=== PATIENT | male | born 1980 | race Caucasian/White ===

== ENCOUNTER → 2020-05-02 08:38 | Outpatient (CLI) | payer BC, SELFPAY ==
[2020-05-04 06:41] LABS: FSH 3.4 mIU/mL (1.5-12.4)
[2020-05-04 10:11] LABS: Prolactin 10.9 ng/mL (4.0-15.2)
[2020-05-09 10:08] LABS: Testosterone, Total, LC/MS 262.5 ng/dL (264.0-916.0); Testosterone,Free 6.1 pg/mL (8.7-25.1)
== END ==
PROVIDERS: PCP Nurse Practitioner Family; Visit Provider Urology
DX: E29.1 Testicular hypofunction (principal)
CPT/HCPCS: 36415; 83001; 83002; 84146; 84402; 84403

== ENCOUNTER 2020-07-08 16:36 | Emergency (ER) | payer BC, SELFPAY ==
[2020-07-08 17:17] VITALS: BP 133/89; PULSE 89; RESP 20; TEMP 37; O2SAT 98; BMI 30.2
--- NOTE | 2020-07-08 17:38 | HMH.EDUTC ---
[facility] [place] Clinical Impression: Encounter for laboratory testing for COVID-19 virus Disposition: Home, Self-Care Condition on Discharge: Good Instructions: Preventing the Spread of Coronavirus Discharge Instructions Additional Instructions: *Monitor Temp, Over the counter Motrin or Tylenol as directed/as needed Tylenol every 4 hours and Motrin every 6 hours (as long as your family doctor has told you that you can take it) for fever or pain. and straight to ER if unable to lower temp less than 101.0 after medication given *Warm salt water gargles may help to soothe the throat *Throat Lozenges *Warm fluids like tea with honey may help to soothe the throat *Sleep elevated *Humidifier/Vaporizer Follow up IMMEDIATELY for new or worsening symptoms or no Noticeable improvement over the next 48-72 hours. 911 for difficulty breathing or swallowing You was tested for today for COVID19 your test result should be back in the next 24-48 hours, you may call to the [facility] tomorrow to see if your test results are back and the result [phone] You was given a handout with instructions for Self Quarantine and Self isolation for while you wait on test results and what to do if they are positive If you are positive the Health Dept will be contacting you also Referrals: Bessy Cyr APRN [Primary Care Provider] - As needed Forms: Work/School Release Time of Disposition: 17:44 Medical Decision Making - Benny Inquiry Pt receiving controlled substance: No Benny was queried for this patient: No Vital Signs: 07/08/20 17:17 Temperature 98.6 F Temperature Source Oral Pulse Rate [Left] 89 Respiratory Rate 20 Blood Pressure [Right Arm] 133/89 Blood Pressure Mean [Right Arm] 103 Blood Pressure Source [Right Arm] Automatic Cuff Blood Pressure Position [Right Arm] Sitting 02 Sat by Pulse Oximetry 98 Orders (Tests/Meds): ORDERS Category Date Time Status Covid-19 Nasal PCR Sendout [facility] 07/08/20 17:04 Ordered [facility] [place] - General Stated complaint: covid test Time Seen by Provider: 07/08/20 17:38 Mode of Arrival: Ambulatory Source of Information: Patient Limitations: No Limitations Description of Symptoms (Recalled from Triage Doc. by RN): Covid testing no exposure no symptoms HEENT Symptoms (Recalled from RN notes): No Resp Symptoms (Recalled from RN notes): No Skin Symptoms (Recalled from RN notes): No MS Symptoms (Recalled from RN notes): No Functional Status (Recalled from RN notes): stable - History of Present Illness Provider Complaint: Patient state that he wanted to get tested for COVID to make sure that he doesnt have it States that he isnt having any symptoms and not been directly exposed that he is aware of. - Worker's Comp Is this a Worker's Comp case?: No Is this an [facility] Worker's Comp?: No Is this a [place] Worker's Comp?: No [facility] History - Hepatitis A Screen Drug use history?: No High risk sexual behaviors?: No History of sexually transmitted infection?: No Currently employed?: No Childcare worker?: No Do you have indoor plumbing?: Yes Do you have electricity?: Yes Attestation statement:: This patient has been screened for Hepatitis A risk factors. I have reviewed the patient's past medical history: Yes ROS Obtained: Yes All systems reviewed & no additional complaints, Yes Systems reviewed as appropriate & no additional complaints - Constitutional Constitutional: Reports system reviewed and no additional complaints, except as docu, Denies body ache, Denies chills, Denies fever(s), Denies headache(s) - ENT Ears, Nose, Mouth, and Throat: Reports system reviewed and no additional complaints, except as docu - Cardiovascular Cardiovascular: Reports system reviewed and no additional complaints, except as docu - Respiratory Respiratory: Yes system reviewed and no additional complaints, except as docu - Gastrointestinal Gastrointestingal: Reports: system reviewed and no additional c
[2020-07-08 17:49] VITALS: BP 133/89; PULSE 89; RESP 20; TEMP 37; O2SAT 98
[2020-07-10 17:31] LABS: Covid-19 Nasal PCR Sendout Lex Not Detected
== END 2020-07-08 17:49 | disposition home or self-care (01) ==
PROVIDERS: Emergency Provider Nurse Practitioner; PCP Nurse Practitioner Family
DX: Z20.828 Contact with and (suspected) exposure to other viral communicable diseases (principal)
CPT/HCPCS: 99201; U0004

== ENCOUNTER 2020-08-17 23:01 | Emergency (ER) | payer BC, SELFPAY ==
[2020-08-17 23:03] VITALS: BP 157/88; PULSE 81; RESP 16; TEMP 37; O2SAT 97; BMI 30.4
--- NOTE | 2020-08-17 23:19 | CT_ITS ---
PROCEDURE: CT THORACIC SPINE WO CON CLINICAL HISTORY: back pain Left-sided back pain COMPARISON: No exams were available for comparison TECHNIQUE: Axial images obtained with sagittal and coronal reformats. All CT scans at the facility use one or more dose reduction, viz: automated exposure control, ma/kV adjustment per patient size (including targeted exams where dose is matched to indication, i.e. head), or iterative reconstruction technique. FINDINGS: Normal alignment. No fracture or dislocation. There is minimal spurring anteriorly at the T5-T6 level. There is slight decrease in the disc spaces in the midthoracic spine consistent with mild degenerative changes. No lytic or blastic change. A small subcutaneous skin lesion is present at the T7 area posteriorly and on the left and may be due to small sebaceous cyst. IMPRESSION: Mild degenerative change, no acute finding Dictated by: Josue Abdul MD 08/18/2020 08:02 Josue Abdul MD in [place] 08/18/2020 08:02
--- NOTE | 2020-08-17 23:19 | CT_ITS ---
PROCEDURE: CT LUMBAR SPINE WO CON CLINICAL HISTORY: back pain Left paraspinal back pain COMPARISON: No exams were available for comparison TECHNIQUE: Axial images obtained with sagittal and coronal reformats. All CT scans at the facility use one or more dose reduction, viz: automated exposure control, ma/kV adjustment per patient size (including targeted exams where dose is matched to indication, i.e. head), or iterative reconstruction technique. FINDINGS: There is normal alignment. No fracture or dislocation. No lytic or blastic change. At L5-S1 there is slight decrease in the disc space with bulging disc and small central disc protrusion. This may be better evaluated with MRI if clinically warranted. IMPRESSION: 1. No acute fracture. 2. Mild degenerative disc disease with bulging disc and small central disc protrusion at L5-S1. MRI may provide more thorough evaluation to determine if there is any impingement if clinically desired. Dictated by: Josue Abdul MD 08/18/2020 08:05 Josue Abdul MD in [facility] 08/18/2020 08:05
--- NOTE | 2020-08-17 23:50 | PC.NURSE ---
pt back from RAD
--- NOTE | 2020-08-18 00:03 | HMH.EDBACK ---
ED Disposition Clinical Impression: Lumbar back pain Disposition: Home, Self-Care Condition on Discharge: Good Instructions: DI for Low Back Pain Additional Instructions: heat and use meds and see pcp for follow up Prescriptions: predniSONE [Prednisone 20mg Tab] 20 mg PO BID #10 tab Transmission Status: Pending to [facility] Tizanidine HCl [Zanaflex 4mg tab] 4 mg PO TID PRN #21 tab PRN Reason: Muscle Spasm Transmission Status: Pending to [facility] Referrals: Bessy Cyr APRN [Primary Care Provider] - - Critical Care Critical Care Time: No Attestation: On 08/17/20, the high probability of a clinically significant, sudden or life threatening deterioration of the following system(s) required my full and direct attention, intervention and personal management. The time I documented below is in addition to time spent performing reported procedures but includes the following listed in this critical care notation. Medical Decision Making - Medical Records Medical records reviewed: Yes: I reviewed the patient's medical records. - Benny Inquiry Pt receiving controlled substance: No Vital Signs: 08/17/20 23:03 Temperature 98.6 F Temperature Source Oral Pulse Rate [Left Radial] 81 Respiratory Rate 16 Blood Pressure [Right Arm] 157/88 H Blood Pressure Mean [Right Arm] 111 Blood Pressure Source [Right Arm] Automatic Cuff Blood Pressure Position [Right Arm] Sitting 02 Sat by Pulse Oximetry 97 Oxygen Delivery Method Room Air - Lab Data Lab results reviewed: Yes: I reviewed the patient's lab results. Orders (Tests/Meds): ED MEDICATIONS Discontinued Medications Generic Name Dose Route Start Last Admin Trade Name Freq PRN Reason Stop Dose Admin Dexamethasone Sodium Phosphate 8 mg 08/17/20 23:52 08/17/20 23:55 Dexamethasone 4mg/Ml 1ml Vial IM 08/17/20 23:53 8 mg ONCE ONE Administration Ketorolac Tromethamine 60 mg 08/17/20 23:52 08/17/20 23:56 Ketorolac 60mg/2ml Vial IM 08/17/20 23:53 60 mg ONCE ONE Administration ORDERS Category Date Time Status CT lumbar spine wo con Stat Cat Scan 08/17/20 23:[address] thoracic spine wo con Stat Cat Scan 08/17/20 23:19 Taken - CT Data CT Scan: T-Spine, L-Spine Time Received: 00:[address] Reviewed: Yes: I have viewed the radiologist's interpretation Preliminary Findings: No Fracture Seen Back Pain HPI - General Chief Complaint: Back Pain/Injury Stated Complaint: middle back pain Time Seen by Provider: 08/17/20 23:30 Mode of Arrival: Ambulatory Source of Information: Patient, Medical Record Limitations: No Limitations Description of Symptoms (Recalled from ER Triage Doc. by RN): pt complains of middle back pain for the last couple of hours. pt denies a specific injury but stated he has been lifting heavy weights. pt describes the pain as a sharp stabbing or a spasm rating it a 7. pt denies chest pain, abd/ pain or SOB. - History of Present Illness HPI Narrative: acute excerbation of back pain - no cauda equina sx - no fever/rash Complaint: back pain Onset (ago): hour(s) Duration: constant Similar Symptoms Previously: No Location: lumbar spine, thoracic spine Severity: moderate Radiation: none Associated symptoms: denies other symptoms - Related Data Home Medications Medication Instructions Recorded Confirmed lisinopriL [Lisinopril 10mg Tab] 10 mg PO DAILY 07/08/20 07/08/20 Previous Rx's Medication Instructions Recorded Tizanidine HCl [Zanaflex 4mg 4 mg PO TID PRN #21 tab 08/18/20 tab] predniSONE [Prednisone 20mg 20 mg PO BID #10 tab 08/18/20 Tab] Allergies Allergy/AdvReac Type Severity Reaction Status Date / Time No Known Allergies Allergy Verified 07/08/20 20:42 [facility] History - Hepatitis A Screen Drug use history?: No High risk sexual behaviors?: No History of sexually transmitted infection?: No Currently employed?: No Childcare wo
[2020-08-18 00:15] VITALS: BP 168/98; PULSE 85; RESP 16; TEMP 36.8; O2SAT 97
== END 2020-08-18 00:19 | disposition home or self-care (01) ==
PROVIDERS: Emergency Provider Emergency Medicine; PCP Nurse Practitioner Family
DX: M54.5 Low back pain (principal); I10 Essential (primary) hypertension
CPT/HCPCS: 72128; 72131; 96372; 99282

== ENCOUNTER → 2020-08-20 10:27 | Outpatient (CLI) | payer BC, SELFPAY ==
[2020-08-20 13:08] LABS: Coronavirus 19 IgG Antibody Negative (Negative); Coronavirus 19 IgM Antibody Negative (Negative)
[2020-08-21 14:16] LABS: Covid-19 Nasal PCR Sendout P&C POSITIVE
--- NOTE | 2020-08-21 20:45 | PC.NURSE ---
DR. REESE NOTIFIED OF POSITIVE COVID RESULTS.
== END ==
PROVIDERS: PCP Nurse Practitioner Family; Visit Provider Nurse Practitioner Family
DX: Z20.828 Contact with and (suspected) exposure to other viral communicable diseases (principal); U07.1 COVID-19; J02.9 Acute pharyngitis, unspecified
CPT/HCPCS: 36415; 86328; U0004

== ENCOUNTER → 2022-04-01 07:00 | Outpatient (CLI) | payer BC, SELFPAY ==
[2022-04-01 18:01] LABS: Anion Gap 10.6 mEq/L (5-15); Blood Urea Nitrogen 17 mg/dl (9-20); Calcium 9.2 mg/dl (8.4-10.2); Carbon Dioxide 27 mmol/L (22.0-30.0); Chloride 105 mmol/L (98-107); Estimated Glomerular Filt Rate 83 ml/min (>60); GFR (African American) 100 ML/MIN (>60); Glucose 101 mg/dl (74-100); Potassium 4.6 mmoL/L (3.5-5.1); Sodium 138 mmol/L (136-145)
== END ==
PROVIDERS: PCP Internal Medicine Adolescent Medicine; Visit Provider Internal Medicine Adolescent Medicine
DX: M10.9 Gout, unspecified (principal)
CPT/HCPCS: 80048

== ENCOUNTER → 2022-10-07 23:45 | Outpatient (CLI) | payer BC, SELFPAY ==
[2022-10-08 17:14] LABS: Basophils % 0.5 % (0.1-2.0); Eosinophils # 0.3 K/mm3 (0.0-0.4); Hematocrit 43.7 % (42.0-52.0); Hemoglobin 14.1 g/dL (14.1-18.0); Lymphocytes % 35.7 % (10-50); Mean Corpuscular HGB Conc 32.1 g/dL (31.8-35.4); Mean Corpuscular Hemoglobin 29.8 pg (27.0-31.2); Mean Corpuscular Volume 92.6 fl (80-94); Mean Platelet Volume 9.6 fl (7.4-10.4); Monocytes # 0.3 K/mm3 (0.1-1.0); Monocytes % 4.5 % (1.7-9.3); Neutrophils # 3.1 K/mm3 (1.8-7.8); Neutrophils % 54.2 % (37.0-80.0); Platelet Count 239 K/mm3 (142-424); Red Blood Count 4.72 M/mm3 (4.60-6.20); Red Cell Distribution Width 12.9 % (11.5-17.5); White Blood Count 5.7 K/mm3 (4.8-10.8)
[2022-10-08 17:18] LABS: Alanine Aminotransferase 30 U/L (12-78); Albumin Level 4.1 g/dl (3.5-5.0); Albumin/Globulin Ratio 1.6 (1.1-1.8); Alkaline Phosphatase 52 U/L (38-126); Anion Gap 9.9 mEq/L (5-15); Aspartate Amino Transferase 37 U/L (17-59); Bilirubin,Total 0.2 mg/dl (0.2-1.3); Blood Urea Nitrogen 26 mg/dl (9-20); Calcium 8.6 mg/dl (8.4-10.2); Carbon Dioxide 30 mmol/L (22.0-30.0); Chloride 108 mmol/L (98-107); Chol/HDL Ratio 4.2 (1-3.5); Cholesterol 125 mg/dl (140-200); Estimated Glomerular Filt Rate 67 ml/min (>60); GFR (African American) 81 ML/MIN (>60); Globulin 2.5 g/dL (1.3-3.2); Glucose 93 mg/dl (74-100); HDL Cholesterol 30 mg/dl (40-60); Potassium 4.9 mmoL/L (3.5-5.1); Sodium 143 mmol/L (136-145); Total Protein,Serum 6.6 g/dl (6.3-8.2); Triglycerides 100 mg/dl (30-150); VLDL Cholesterol 20 mg/dL (0-40)
[2022-10-08 17:29] LABS: Direct LDL Cholesterol 75.66 mg/dL (100-129)
[2022-10-08 17:36] LABS: Free Thyroxine Index 3.2 ug/dL (5.93-13.13); T4 (Thyroxine) 8.4 ug/dl (5.53-11.0); Triiodothryronine (T3) Uptake 38 % (23.5-40.5)
[2022-10-08 17:49] LABS: Thyroid Stimulating Hormone 0.69 uIU/mL (0.465-4.68)
[2022-10-16 06:03] LABS: Testosterone, Total, LC/MS 313.7 ng/dL (264.0-916.0); Testosterone,Free 6.5 pg/mL (6.8-21.5)
== END ==
PROVIDERS: PCP Nurse Practitioner Family; Visit Provider Nurse Practitioner Family
DX: R09.89 Other specified symptoms and signs involving the circulatory and respiratory systems (principal); R63.4 Abnormal weight loss; I10 Essential (primary) hypertension; E29.1 Testicular hypofunction
CPT/HCPCS: 80053; 80061; 84402; 84403; 84436; 84443; 84479; 85025; C9803; U0003; U0005

== ENCOUNTER → 2023-07-15 23:15 | Outpatient (CLI) | payer BC, SELFPAY ==
[2023-07-15 17:12] LABS: Basophils % 0.5 % (0.1-2.0); Eosinophils # 0.1 K/mm3 (0.0-0.4); Eosinophils % 1.6 % (0.1-12.0); Hematocrit 47.8 % (42.0-52.0); Hemoglobin 16.2 g/dL (14.1-18.0); Lymphocytes % 23.5 % (10-50); Mean Corpuscular HGB Conc 33.9 g/dL (31.8-35.4); Mean Corpuscular Hemoglobin 31.3 pg (27.0-31.2); Mean Corpuscular Volume 92.4 fl (80-94); Mean Platelet Volume 10.7 fl (7.4-10.4); Monocytes # 0.5 K/mm3 (0.1-1.0); Monocytes % 6.2 % (1.7-9.3); Neutrophils # 5.8 K/mm3 (1.8-7.8); Neutrophils % 68.1 % (37.0-80.0); Platelet Count 230 K/mm3 (142-424); Red Blood Count 5.18 M/mm3 (4.60-6.20); Red Cell Distribution Width 13.1 % (11.5-17.5); White Blood Count 8.5 K/mm3 (4.8-10.8)
[2023-07-15 17:29] LABS: Alanine Aminotransferase 30 U/L (12-78); Albumin Level 4.7 g/dl (3.5-5.0); Albumin/Globulin Ratio 1.5 (1.1-1.8); Alkaline Phosphatase 59 U/L (38-126); Anion Gap 16.9 mEq/L (5-15); Aspartate Amino Transferase 42 U/L (17-59); Bilirubin,Total 0.5 mg/dl (0.2-1.3); Blood Urea Nitrogen 18 mg/dl (9-20); Calcium 9.6 mg/dl (8.4-10.2); Carbon Dioxide 26 mmol/L (22.0-30.0); Chloride 101 mmol/L (98-107); Chol/HDL Ratio 3.7 (1-3.5); Cholesterol 212 mg/dl (140-200); Estimated Glomerular Filt Rate 61 ml/min (>60); GFR (African American) 73 ML/MIN (>60); Globulin 3.2 g/dL (1.3-3.2); Glucose 96 mg/dl (74-100); HDL Cholesterol 57 mg/dl (40-60); Potassium 4.9 mmoL/L (3.5-5.1); Sodium 139 mmol/L (136-145); Total Protein,Serum 7.9 g/dl (6.3-8.2); Triglycerides 84 mg/dl (30-150); VLDL Cholesterol 17 mg/dL (0-40)
[2023-07-15 17:59] LABS: Thyroid Stimulating Hormone 1.48 uIU/mL (0.465-4.68)
[2023-07-17 08:57] LABS: Testosterone,Total 192 ng/dL (264-916)
== END ==
PROVIDERS: PCP Family Medicine; Visit Provider Family Medicine
DX: Z00.00 Encounter for general adult medical examination without abnormal findings (principal); I10 Essential (primary) hypertension; R53.83 Other fatigue
CPT/HCPCS: 80053; 80061; 84403; 84443; 85025

== ENCOUNTER 2023-07-17 09:44 | Emergency (ER) | payer BC, SELFPAY ==
[2023-07-17 09:46] VITALS: BP 147/101; PULSE 84; RESP 16; TEMP 36.7; O2SAT 99; BMI 26.7
[2023-07-17 10:00] VITALS: BP 148/100; PULSE 88; RESP 18; O2SAT 97
--- NOTE | 2023-07-17 10:05 | HMH.EDGENADL ---
Discharge Plan Disposition Patient Disposition: Home, Self-Care Chief Complaint: Headache Prescriptions Prescriptions: No Action bupropion HCl [Wellbutrin XL] 300 mg tablet extended release 24 hr 300 mg PO DAILY Qty: 30 1RF Qelbree 200 mg capsule,extended release 24hr 200 mg PO .COMPLEX Qty: 60 1RF Rx Instructions: take 1 daily for 2 weeks; then increase to 2 capsules daily indomethacin 50 mg capsule 50 mg PO BID Qty: 60 0RF Rx Instructions: administer with food or milk, take 50mg BID for 7-14 days for gout flare allopurinol 100 mg tablet See Rx Instructions .ROUTE .COMPLEX Qty: 90 1RF Dose Instruction: TAKE 1 TABLET BY MOUTH ONCE DAILY Rx Instructions: TAKE 1 TABLET BY MOUTH ONCE DAILY lisinopril 10 mg tablet See Rx Instructions .ROUTE .COMPLEX Qty: 30 0RF Dose Instruction: TAKE 1 TABLET BY MOUTH ONCE DAILY Rx Instructions: TAKE 1 TABLET BY MOUTH ONCE DAILY Referrals Follow up/Referrals: Jn Garcia MD [Primary Care Provider] - See instructions Activity Restrictions/Add. Instructions Additional Instructions/Restrictions: Call your family doctor to establish care for this visit to the emergency department and schedule follow-up within 48 hours to ensure improvement. If you have any worsening of your condition or any other concerning signs or symptoms, return to the emergency department or your primary care doctor for further evaluation. Take Tylenol 1000 mg every 6 hours (4 times daily) and ibuprofen 400 mg every 6 hours (4 times daily) as needed with food and water to prevent GI upset and kidney damage. Clinical Impressions Clinical Impression: Migraine headache Qualifiers: Migraine type: unspecified Status migrainosus presence: without status migrainosus Intractability: not intractable Qualified Code(s): G43.909 - Migraine, unspecified, not intractable, without status migrainosus Discharge ED Provider: Ady Pillai General Adult HPI General Chief complaint: Headache Stated complaint: HEADACHE, THROWING UP Time Seen by Provider: 07/17/23 09:47 History of Present Illness HPI narrative: 43-year-old male history of hypertension on lisinopril, ADHD, illness anxiety disorder presenting with headache. Patient states that he has felt unwell for the past couple of weeks. Followed with his family doctor, had labs drawn a couple days prior to arrival. Those labs were personally reviewed and interpreted. Patient states that he started having a headache today, 07/17 after waking up. [place] in nature, but intermittently remits. Has not taken any medication for this headache. He is light sensitive, sound sensitive. Denies significant headache history other than minor headaches here and there in the past. Denies neurologic deficits, patient did have 1 episode of vomiting, but he is color blind and did not look at it. Still passing gas, having bowel movements. Denies abdominal pain, fevers or chills, or sick contacts. Related Data Previous Rx's Medication Instructions Recorded indomethacin 50 mg capsule 50 mg PO BID #60 caps 04/04/23 allopurinol 100 mg tablet See Rx Instructions .Route 05/16/23 .COMPLEX #90 tabs bupropion HCl 300 mg 24 hr tablet, 300 mg PO DAILY #30 tabs 07/06/23 extended release (Wellbutrin XL) lisinopril 10 mg tablet See Rx Instructions .Route 07/06/23 .COMPLEX #30 tabs viloxazine 200 mg capsule,extended 200 mg PO .COMPLEX #60 caps 07/06/23 release 24 hr (Qelbree) Allergies Allergy/AdvReac Type Severity Reaction Status Date / Time No Known Allergies Allergy Verified 07/15/23 09:28 [facility] Disclaimer: The information contained in this section may have been updated after the patient was seen, as this information can be updated by other users. Medical History ADHD Concentration deficit Gout Hypertension Surgical History (Reviewed 07/15/23 @ 10:36 b
[2023-07-17 10:19] LABS: Basophils % 0.3 % (0.1-2.0); Eosinophils # 0.2 K/mm3 (0.0-0.4); Eosinophils % 1.7 % (0.1-12.0); Hematocrit 46.6 % (42.0-52.0); Hemoglobin 15.7 g/dL (14.1-18.0); Lymphocytes # 1.6 K/mm3 (0.7-4.5); Lymphocytes % 16.9 % (10-50); Mean Corpuscular HGB Conc 33.6 g/dL (31.8-35.4); Mean Corpuscular Hemoglobin 31.1 pg (27.0-31.2); Mean Corpuscular Volume 92.6 fl (80-94); Mean Platelet Volume 8.8 fl (7.4-10.4); Monocytes # 0.3 K/mm3 (0.1-1.0); Neutrophils # 7.3 K/mm3 (1.8-7.8); Platelet Count 191 K/mm3 (142-424); Red Blood Count 5.04 M/mm3 (4.60-6.20); Red Cell Distribution Width 12.8 % (11.5-17.5); White Blood Count 9.4 K/mm3 (4.8-10.8)
[2023-07-17 10:26] LABS: Chloride 105 mmol/L (98-107); Potassium 4.6 mmoL/L (3.5-5.1); Sodium 139 mmol/L (136-145)
[2023-07-17 10:29] LABS: Anion Gap 10.6 mEq/L (5-15); Blood Urea Nitrogen 15 mg/dl (9-20); Carbon Dioxide 28 mmol/L (22.0-30.0); Creatinine Clearance Estimated 114 mL/min (50-200); Estimated Glomerular Filt Rate 73 ml/min (>60); GFR (African American) 89 ML/MIN (>60); Glucose 106 mg/dl (74-100)
[2023-07-17 10:30] VITALS: BP 152/100; PULSE 76; RESP 18; O2SAT 98
[2023-07-17 10:30] LABS: Calcium 8.9 mg/dl (8.4-10.2)
[2023-07-17 11:42] VITALS: BP 144/99; PULSE 72; RESP 15; TEMP 36.9; O2SAT 98
--- NOTE | 2023-07-17 11:54 | PC.NURSE ---
Dr. Pillai at to reevaluate pt
== END 2023-07-17 12:09 | disposition home or self-care (01) ==
PROVIDERS: Emergency Provider Emergency Medicine; PCP Family Medicine
DX: G43.909 Migraine, unspecified, not intractable, without status migrainosus (principal); R11.10 Vomiting, unspecified; I10 Essential (primary) hypertension; F90.9 Attention-deficit hyperactivity disorder, unspecified type; F41.1 Generalized anxiety disorder
CPT/HCPCS: 80048; 85025; 96361; 96374; 96375; 99284; J0131

== ENCOUNTER → 2023-08-05 10:36 | Outpatient (CLI) | payer BC, SELFPAY ==
--- NOTE | 2023-08-05 10:37 | CT_ITS ---
FINAL REPORT TECHNIQUE: Multiple axial CT sections were performed from the foramen magnum to the vertex. Coronal and sagittal reformatted images were also obtained. Precontrast and postcontrast injection images were obtained. This study was performed with technique to keep radiation doses as low as reasonably achievable, (ALARA). Individualized dose reduction techniques using automated exposure control or adjustment of mA and/or kV according to the patient size were employed. CLINICAL HISTORY: ongoing headache, blurry vision FINDINGS: The ventricles are normal in size. There is no evidence of hemorrhage. No masses are identified. No extra-axial fluid collection is seen. There is bilateral moderate maxillary soft tissue thickening. There is left parietal scalp soft tissue swelling present. No osseous abnormality is seen on the bone window images. Postcontrast images demonstrate no abnormal enhancement. IMPRESSION: Unremarkable CT of the head with and without contrast. Left parietal scalp soft tissue swelling. Moderate bilateral maxillary sinus soft tissue thickening. Reviewed, Interpreted and Dictated by Tim Khan III, MD Transcribed by Kajal Rojas Authenticated and [facility]
== END ==
LOC: RAD 10:37
PROVIDERS: PCP Family Medicine; Visit Provider Nurse Practitioner Family
DX: H53.8 Other visual disturbances (principal); R51.9 Headache, unspecified
CPT/HCPCS: 70470; Q9967

== ENCOUNTER 2023-11-02 16:46 | Outpatient (CLI) | payer BC, SELFPAY ==
[2023-11-02 16:36] LABS: Basophils # 0.1 K/mm3 (0-0.2); Basophils % 0.9 % (0.1-2.0); Eosinophils # 0.3 K/mm3 (0.0-0.4); Eosinophils % 4.4 % (0.1-12.0); Hematocrit 50.5 % (42.0-52.0); Hemoglobin 16.3 g/dL (14.1-18.0); Mean Corpuscular HGB Conc 32.2 g/dL (31.8-35.4); Mean Corpuscular Hemoglobin 31.8 pg (27.0-31.2); Mean Corpuscular Volume 98.8 fl (80-94); Mean Platelet Volume 9.9 fl (7.4-10.4); Monocytes # 0.5 K/mm3 (0.1-1.0); Monocytes % 7.7 % (1.7-9.3); Neutrophils # 3.9 K/mm3 (1.8-7.8); Neutrophils % 58.1 % (37.0-80.0); Platelet Count 257 K/mm3 (142-424); Red Blood Count 5.11 M/mm3 (4.60-6.20); Red Cell Distribution Width 13.7 % (11.5-17.5); White Blood Count 6.8 K/mm3 (4.8-10.8)
[2023-11-02 17:56] LABS: Alanine Aminotransferase 35 U/L (12-78); Albumin Level 4.6 g/dl (3.5-5.0); Albumin/Globulin Ratio 1.8 (1.1-1.8); Alkaline Phosphatase 58 U/L (38-126); Anion Gap 17.3 mEq/L (5-15); Aspartate Amino Transferase 43 U/L (17-59); Bilirubin,Total 0.7 mg/dl (0.2-1.3); Blood Urea Nitrogen 19 mg/dl (9-20); Calcium 9.3 mg/dl (8.4-10.2); Carbon Dioxide 26 mmol/L (22.0-30.0); Chloride 102 mmol/L (98-107); Chol/HDL Ratio 5.1 (1-3.5); Cholesterol 239 mg/dl (140-200); Estimated Glomerular Filt Rate 66 ml/min (>60); GFR (African American) 80 ML/MIN (>60); Globulin 2.6 g/dL (1.3-3.2); HDL Cholesterol 47 mg/dl (40-60); Potassium 4.3 mmoL/L (3.5-5.1); Sodium 141 mmol/L (136-145); Total Protein,Serum 7.2 g/dl (6.3-8.2); Triglycerides 131 mg/dl (30-150); VLDL Cholesterol 26 mg/dL (0-40)
[2023-11-02 18:07] LABS: Direct LDL Cholesterol 135.25 mg/dL (100-129)
[2023-11-02 18:48] LABS: Glucose 51 mg/dl (74-100)
[2023-11-07 08:05] LABS: Free Testosterone (Direct) 7.6 pg/mL (6.8-21.5); Testosterone, Total, LC/MS 244.2 ng/dL (264.0-916.0)
== END 2023-11-02 23:59 ==
LOC: LAB.DROPOF 16:47
PROVIDERS: PCP Family Medicine; Visit Provider Family Medicine
DX: I10 Essential (primary) hypertension (principal); R79.89 Other specified abnormal findings of blood chemistry; Z79.899 Other long term (current) drug therapy
CPT/HCPCS: 80053; 80061; 85025

== ENCOUNTER 2023-12-12 08:14 | Emergency (ER) | payer BC, SELFPAY ==
[2023-12-12 08:25] VITALS: BP 160/93; PULSE 83; RESP 18; TEMP 36.8; O2SAT 97; BMI 29.1
--- NOTE | 2023-12-12 08:39 | EXP.UTC ---
Discharge Plan Disposition Patient Disposition: Home, Self-Care Condition: Good Prescriptions Prescriptions: New cyclobenzaprine 10 mg Tablet 10 mg PO BID PRN (Reason: Muscle Spasm) Qty: 20 0RF methylprednisolone 4 mg Tablets,Dose Pack 4 mg PO DIRECTED 6 Days Qty: 21 0RF Rx Instructions: Take 1 pack as directed for 6 days No Action clonidine HCl 0.1 mg tablet 0.1 mg PO BID Qty: 60 2RF testosterone cypionate 200 mg/mL oil 200 mg IM Q2W Qty: 2 2RF indomethacin 50 mg capsule 50 mg PO BID Qty: 60 0RF Rx Instructions: administer with food or milk, take 50mg BID for 7-14 days for gout flare allopurinol 100 mg tablet See Rx Instructions .ROUTE .COMPLEX Qty: 90 1RF Dose Instruction: TAKE 1 TABLET BY MOUTH ONCE DAILY Rx Instructions: TAKE 1 TABLET BY MOUTH ONCE DAILY lisinopril 40 mg tablet 40 mg PO DAILY Qty: 90 2RF fluticasone propionate [Flonase Allergy Relief] 50 mcg/actuation spray,suspension 1 spray intranasal DAILY Qty: 16 2RF Rx Instructions: administer into each nostril bupropion HCl [Wellbutrin XL] 150 mg tablet extended release 24 hr 450 mg PO DAILY 90 Days Qty: 270 2RF Referrals Follow up/Referrals: Hever Veloz DO [Staff Physician] - See instructions Jn Garcia MD [Primary Care Provider] - See instructions Activity Restrictions/Add. Instructions Additional Instructions/Restrictions: Go home and rest. It would be best if you rested tomorrow too. No heavy lifting and no twisting for the next few days. Take the oral medications as directed. Apply heat to the affected area at least 3 or 4 times per day for around 10 minutes each time over the next 2 to 3 days. A heating pad or a warm towel would be best. Make sure you don't burn yourself when you are doing this. The muscle relaxer (cyclobenzaprine--Flexeril) will make you drowsy, so don't drive or operate heavy machinery after taking it. Don't start the oral steroids (medrol dose pack) until tomorrow, since you had the shots in here today. Follow up with your regular doctor. GO TO THE ER FOR ANY WORSENING SYMPTOMS OR CONCERN, ESPECIALLY BOWEL OR BLADDER ISSUES, SADDLE AREA NUMBNESS, FEVER, ETC Follow up with Dr. Veloz (orthopedics) if you continue to have these symptoms for more than the next 48 to 72 hours. I put in a referral but you need to call his office and schedule an appointment. His office phone number will be on this paper work. Clinical Impressions Clinical Impression: Trapezius muscle strain, Cervical radiculopathy Stand Alone Forms Stand Alone Forms: Work/School Release Instructions Patient Instructions: DI for Cervical Radiculopathy, DI for Muscle Strain, Cyclobenzaprine, Methylprednisolone, Ketorolac Injection, Dexamethasone Injection Discharge [place] Abhishek Negro [facility] [place] General Stated complaint: pain going down R neck through shoulder Mode of Arrival: Ambulatory Source of Information: Patient Limitations: No Limitations Time Seen by Provider: 12/12/23 08:38 Description of Symptoms (Recalled from Triage Doc. by RN): Pt's symptoms are pain that started behind right ear and radiates down neck to shoulder. He denies any cardiac issues. HEENT Symptoms (Recalled from RN notes): Yes Resp Symptoms (Recalled from RN notes): No Skin Symptoms (Recalled from RN notes): No MS Symptoms (Recalled from RN notes): No Functional Status (Recalled from RN notes): n/a History of Present Illness Provider Complaint: He states that, yesterday, he worked really hard building a fenced in area for his goats. In the process of doing this, he began pain in the right side of his neck that runs down to the top of his shoulder. He states that certain movements trigger the pain to run down his arm toward his hand. He denies any chest pain. He denies any other complaints or issues. He denies any fever/chills or systemic symptoms. He denies numbness or tingling of that shoulder, arm or hand. He denies any chest pain, shortness or breath, and abnormal fatigue. Related Data Previous Rx's Medication Instructions Recorded indomethacin 50 mg capsule 50 mg PO BID #60 caps 04/04/23 allopurinol 100 mg tablet See Rx Instructions .Route 05/16/23 .COMPLEX #90 tabs lisinopril 40 mg tablet 40 mg PO DAILY #90 tabs 08/09/23 fluticasone propionate 50 1 spray intranasal DAILY #16 grams 08/30/23 mcg/actuation nasal spray,suspension (Flonase Allergy Relief) bupropion HCl 150 mg 24 hr tablet, 450 mg (3 x 150 mg) PO DAILY 90 09/22/23 extended release (Wellbutrin XL) days #270 tabs testosterone cypionate 200 mg/mL 200 mg IM Q2W #2 mL 09/24/23 intramuscular oil clonidine HCl 0.1 mg tablet 0.1 mg PO BID #60 tabs 10/26/23 cyclobenzaprine 10 mg tablet 10 mg PO BID PRN Muscle Spasm #20 12/12/23 tabs methylprednisolone 4 mg tablets in 4 mg PO DIRECTED 6 days #21 tabs 12/12/23 a dose pack Allergies Allergy/AdvReac Type Severity Reaction Status Date / Time No Known Allergies Allergy Verified 10/26/23 09:09 Worker's Comp Is this a Worker's Comp case?: No [facility] Disclaimer: The information contained in this section may have been updated after the patient was seen, as this information can be updated by other users. Medical History ADHD Concentration deficit Gout Hypertension Surgical History H/O knee surgery History of facial surgery Family History Father Hyperlipidemia Hypertension Coronary artery disease COPD (chronic obstructive pulmonary disease) Social History Smoking Status: Never smoker second hand exposure: No alcohol intake: current counseling given: No substance use type: denies use counseling given: No current occupational status: employed Travel in the last 8 weeks: Inside the [place] adopted: No caregiver/support person: Yes (for his daughter) foster care: No household members: spouse and children housing: house lives independently: Yes marital status: number of children: 1 number of grandchildren: 0 education level: college current occupational exposures/hazards: No Hx Recent Travel: No sexually active: Yes caffeine: Yes physical activity: none jose/latter day: Catholic special jose needs: No working smoke detector in home: Yes fire extinguisher in home: Yes carbon monox detector in home: No firearms in home: Yes firearms unloaded and locked: Yes do you feel safe at home: Yes victim of physical abuse: No victim of emotional abuse: No victim of sexual abuse: No would you like helpful sources: No ROS Obtained: Yes All systems reviewed & no additional complaints except as documented Constitutional Constitutional: Denies chills, Denies fever(s), Denies headache(s) and Denies weakness Eyes Eyes: Denies eye discharge ENT Ears, Nose, Mouth, and Throat: Denies dizziness, Denies otalgia, Denies headache(s), Reports neck pain and Denies sore throat Cardiovascular Cardiovascular: Denies chest pain and Denies syncope Respiratory Respiratory: Denies shortness of breath, Denies chest congestion, Denies cough, Denies stridor and Denies wheezing Gastrointestinal Gastrointestingal: Denies nausea or vomiting Musculoskeletal Musculoskeletal: Reports as per HPI, Denies back pain, Reports neck pain, Denies numbness and Denies tingling Integumentary/Breasts Skin/Breast: Denies rash Neurologic Neurologic: Reports as per HPI, Denies burning sensations, Denies dizziness, Denies focal weakness, Denies headache(s), Denies numbness, Denies paresthesias, Reports radicular pain, Denies syncope, Denies tingling, Denies tremor(s) and Denies weakness Allergic/Immunologic Allergic/Immunologic: Denies wheezing Physical Exam General General appearance: alert and in no apparent distress Head Head exam: atraumatic, normocephalic and normal inspection Eye Eye exam: Present normal appearance, PERRL and EOMI ENT ENT exam: Present normal exam, normal oropharynx, mucous membranes moist, TM's normal bilaterally and normal external ear exam Neck Neck exam: Present normal inspection, full ROM and trachea midline; Absent meningismus or lymphadenopathy Chest Chest inspection: Present normal inspection and symmetric chest wall rise; Absent tenderness Respiratory Respiratory exam: Present normal lung sounds bilaterally; Absent respiratory distress Cardiovascular Cardiovascular exam: Present regular rate and normal rhythm; Absent JVD Abdominal Exam Abdominal exam: Present soft and normal bowel sounds; Absent distention, tenderness or guarding Extremities Exam Extremities exam: Present normal capillary refill; Absent calf tenderness Expanded Upper Extremity Exam Right: Shoulder exam: Present full ROM; Absent tenderness, swelling, abrasion, laceration, ecchymosis, deformity, crepitus, dislocation, erythema or tenderness over AC joint Arm exam: Present normal inspection and full ROM; Absent tenderness Elbow exam: Present normal inspection and full ROM; Absent tenderness, pain w/ pronation/supination or tenderness over radial head Forearm/Wrist exam: Present normal inspection and full ROM; Absent tenderness Hand exam: Present normal inspection and full ROM; Absent tenderness Neuromotor exam: Normal wrist extension, thumb opposition, thumb IP flexion, thumb adduction and fingers 2-5 abduction Neurosensory exam: Normal radial nerve, ulnar nerve and median nerve Vascular exam: Normal capillary refill, radial pulse, ulnar pulse and brachial pulse Back Exam Back exam: Present normal inspection; Absent tenderness, CVA tenderness (R), CVA tenderness (L), muscle spasm, paraspinal tenderness, vertebral tenderness, rashes, sciatic notch tenderness (R) or sciatic notch tenderness (L) Neurological Exam Neurological exam: Present alert and oriented X3 Psychiatric Psychiatric exam: Present normal affect and normal mood Skin Skin exam: Present warm, dry, intact and normal color Lymphatic Lymphatic Findings: no adenopathy Medical Decision Making Medical Records Medical records reviewed: No I reviewed the patient's medical records. Benny Inquiry Pt receiving controlled substance: No Vital Signs: 12/12/23 08:25 Temperature 98.2 F Temperature Source Oral Pulse Rate [Right Radial] 83 Respiratory Rate 18 Blood Pressure [Right Arm] 160/93 H Blood Pressure Mean [Right Arm] 115 Blood Pressure Source [Right Arm] Automatic Cuff Blood Pressure Position [Right Arm] Sitting 02 Sat by Pulse Oximetry 97 Oxygen Delivery Method Room Air
[2023-12-12] MEDS: DEXAMETHASONE 4MG/ML 1ML VIAL 8 MG IM (08:57)
[2023-12-12] MEDS: KETOROLAC 60MG/2ML VIAL 60 MG IM (08:57)
[2023-12-12 09:32] VITALS: BP 160/93; PULSE 83; RESP 18; TEMP 36.8; O2SAT 97
== END 2023-12-12 09:32 | disposition home or self-care (01) ==
PROVIDERS: Emergency Provider Nurse Practitioner Family; PCP Family Medicine
DX: S46.811A Strain of other muscles, fascia and tendons at shoulder and upper arm level, right arm, initial encounter (principal); M54.12 Radiculopathy, cervical region; I10 Essential (primary) hypertension; X50.0XXA Overexertion from strenuous movement or load, initial encounter
CPT/HCPCS: 96372; 99204; 99212; G0463

== ENCOUNTER 2025-06-07 09:48 | Outpatient (CLI) | payer BC, SELFPAY ==
[2025-06-07 20:42] LABS: Hematocrit 46.4 % (42.0-52.0); Hemoglobin 14.8 g/dL (14.1-18.0); Immature Granulocytes % 0.5 %; Mean Corpuscular HGB Conc 31.9 g/dL (31.8-35.4); Mean Corpuscular Hemoglobin 30.0 pg (27.0-31.2); Mean Corpuscular Volume 94.1 fl (80-94); Nucleated Red Blood Cells % 0 %; Platelet Count 269 K/mm3 (142-424); Red Blood Count 4.93 M/mm3 (4.60-6.20); Red Cell Distribution Width-SD 43.6 fL; White Blood Count 8.7 K/mm3 (4.8-10.8)
[2025-06-07 21:42] LABS: Alanine Aminotransferase 26 U/L (12-78); Albumin Level 4.3 g/dl (3.5-5.0); Albumin/Globulin Ratio 1.5 (1.1-1.8); Alkaline Phosphatase 85 U/L (38-126); Anion Gap 16.3 mEq/L (5-15); Aspartate Amino Transferase 34 U/L (17-59); Bilirubin,Total 0.6 mg/dl (0.2-1.3); Blood Urea Nitrogen 15 mg/dl (9-20); Calcium 9.3 mg/dl (8.4-10.2); Carbon Dioxide 28 mmol/L (22.0-30.0); Chloride 101 mmol/L (98-107); Cholesterol 193 mg/dl (140-200); Creatinine,Serum 1.10 mg/dl (0.66-1.25); Estimated Glomerular Filt Rate 73 ml/min (>60); GFR (African American) 88 ML/MIN (>60); Globulin 2.9 g/dL (1.3-3.2); Glucose 88 mg/dl (74-100); HDL Cholesterol 49 mg/dl (40-60); Potassium 5.3 mmoL/L (3.5-5.1); Sodium 140 mmol/L (136-145); Total Protein,Serum 7.2 g/dl (6.3-8.2); Triglycerides 105 mg/dl (30-150)
[2025-06-07 22:29] LABS: Hepatitis C Ab Qual. W/ RFX NEGATIVE (Negative)
--- OUTSIDE RECORDS SUMMARY | 2025-06-10 09:53 | XMS_ITS | Clinical Summary ---
Author Organization Healthcare Address [address] [place] [address] Care Team Providers Care Wind Operations Manager Name Role Phone Andreina Abdul APRN Primary Care Provider Social History Tobacco Use Types Packs/Day Years Used Date Smoking Tobacco: Never Alcohol Use Standard Drinks/Week Comments Yes 0 (1 standard drink = 0.6 oz pure alcohol) Alcoholic Drinks/day: Occasional alcohol use Sex and Gender Information Value Date Recorded Sex Assigned at Not on file Legal Sex Male 8:27 PM EDT Gender Identity Not on file Sexual Orientation Not on file Last Filed Vital Signs Vital Sign Reading Time Taken Comments Blood Pressure 165/102 09/07/2018 8:57 AM EST Pulse 93 09/07/2018 8:57 AM EST Temperature - - Respiratory Rate - - Oxygen Saturation - - Inhaled Oxygen Concentration - - Weight 103 kg (227 lb 0.1 oz) 09/07/2018 8:57 AM EST Height 185.4 cm (6' 1 ) 09/07/2018 8:57 AM EST Body Mass Index 29.95 09/07/2018 8:57 AM EST Plan of Treatment Not on file Care Teams Wind Operations Manager Relationship Specialty Start Date End Date Andreina Abdul APRN [address] [place] [address] PCP - General 01/09/21
--- OUTSIDE RECORDS SUMMARY | 2025-06-10 09:53 | XMS_ITS | Data Portability ---
Author Organization [facility] VIRGINIE [facility] [place] Address [address] [place] [address] Care Team Providers Care Back Tufter Name Role Phone RENATE ANDINO Primary Care Provider Assessment No assessment recorded. Plan of Treatment Reminders Order Date Submit Date Provider Last Modified By Organization Details Last Modified Time Details Appointments FOLLOW UP DAK 2025 10:10A M EVELYN DORAN PA-C Not available Not available Not available Lab urinaly sis panel, auto 2023 024 [email or web address] [facility], [address], [place], [address], 04/11/2024 17:04:42 Referral None recorde d. Procedures None recorde d. Surgeries None recorde d. Imaging None recorde d. Medication Orders triamci nolone acetoni de 0.1 % topical ointmen t 2024 025 cpenningto n26 [facility] [id number], [address], [place], [address], 09/17/2024 10:55:50 sildena angelina (pulmon uriel hyperte nsion) 20 mg tablet 2023 024 [place] [facility] [id number], [address], [place], [address], 04/11/2024 17:04:44 sildena angelina (pulmon uriel hyperte nsion) 20 mg tablet 2020 021 [facility] [id number], [address], [place], [address], 03/24/2021 21:45:27 Patient TargetsNo targets recorded. Patient Instructions Encounter Date Encounter Id Patient Instructions Last Modified By Organization Details Last Modified Time 04/16/2020 [id number] infertility: car e instructions [email or web address] Not available 04/16/2020 16:51:39 hypogonadism: care instructions [email or web address] Not available 04/16/2020 16:51:39 Reason for Referral None Reported. Results Created Date Observation Date Name Description Value Unit Range Abnormal Flag Note LastModifiedBy Organization Detail LastModifiedTime 04/11/2004/11/2024 urina lysis panel , auto Unknown Analyte Clean Catch Not Available [facility] [address], [place], [address], 04/11/2024 16:19:12 04/11/20 24 04/11/2024 urina lysis panel , auto Unknown Analyte Yellow Not Available [facility] [address], [place], [address], 04/11/2024 16:19:12 04/11/2004/11/2024 urina lysis panel , auto Unknown Analyte Clear Not Available [facility] [address] [place] [address] [address], [place], [address], 04/11/2024 16:19:12 04/11/2004/11/2024 urina lysis panel , auto Unknown Analyte 1.000 Not Available [facility] [address], [place], [address], 04/11/2024 16:19:12 08/14/04/11/2024 urina lysis panel , auto Unknown Analyte 1.003- 1.035 Not Available [facility] [address], [place], [address], 04/11/2024 16:19:12 04/11/20 24 04/11/2024 urina lysis panel , auto Unknown Analyte 7.0 Not Available [facility] [address], [place], [address], 04/11/2024 16:19:12 04/11/20 24 04/11/2024 urina lysis panel , auto Unknown Analyte 5.0-8. 0 Not Available [facility] [address], [place], [address], 04/11/2024 16:19:12 04/11/20 24 04/11/2024 urina lysis panel , auto Unknown Analyte Negati ve Not Available [facility] [address], [place], [address], 04/11/2024 16:19:12 04/11/20 24 04/11/2024 urina lysis panel , auto Unknown Analyte Negati ve Not Available [facility] [address], [place], [address], 04/11/2024 16:19:12 04/11/20 24 04/11/2024 urina lysis panel , auto Unknown Analyte Negati ve Not Available [facility] [address], [place], [address], 04/11/2024 16:19:12 04/11/20 24 04/11/2024 urina lysis panel , auto Unknown Analyte Negati ve Not Available [facility] [address], [place], [address], 04/11/2024 16:19:12 04/11/20 24 04/11/2024 urina lysis panel , auto Unknown Analyte Negati ve Not Available [facility] [address], [place], [address], 04/11/2024 16:19:12 04/11/2004/11/2024 urina lysis panel , auto Unknown Analyte Negati ve Not Available [facility] [address], [place], [address], 04/11/2024 16:19:12 04/11/20 24 04/11/2024 urina lysis panel , auto Unknown Analyte Normal Not Available [facility] [address], [place], [address], 04/11/2024 16:19:12 04/11/20 24 04/11/2024 urina lysis panel , auto Unknown Analyte Normal Not Available [facility] [address], [place], [address], 04/11/2024 16:19:12 04/11/2004/11/2024 urina lysis panel , auto Unknown Analyte Negati ve Not Available [facility] [address], [place], [address], 04/11/2024 16:19:12 04/11/20 24 04/11/2024 urina lysis panel , auto Unknown Analyte Negati ve Not Available [facility] [address], [place], [address], 04/11/2024 16:19:12 04/11/20 24 04/11/2024 urina lysis panel , auto Unknown Analyte Normal Not Available [facility] [address], [place], [address], 04/11/2024 16:19:12 04/11/20 24 04/11/2024 urina lysis panel , auto Unknown Analyte Normal 1 mg/dl Not Available [facility] [address], [place], [address], 04/11/2024 16:19:12 04/11/20 24 04/11/2024 urina lysis panel , auto Unknown Analyte Negati ve Not Available [facility] [address], [place], [address], 04/11/2024 16:19:12 04/11/20 24 04/11/2024 urina lysis panel , auto Unknown Analyte Negati ve Not Available [facility] [address], [place], [address], 04/11/2024 16:19:12 04/11/2004/11/2024 urina lysis panel , auto Unknown Analyte Negati ve Not Available [facility] [address], [place], [address], 04/11/2024 16:19:12 04/11/20 24 04/11/2024 urina lysis panel , auto Unknown Analyte Negati ve Not Available [facility] [address], [place], [address], 04/11/2024 16:19:12 Result Notes None recorded. Problems No Known Problems Procedures Surgical History Date Name Laterality Status Provider Name and Address Organization Details Recorded Time 09/17/19 25 DAK - Destruction BN Lesions completed Truman Ramón [facility] 09/17/2024 10:49:47 procedure on knee completed [facility] 04/16/2020 16:09:17 orthognathic operation of mandible completed [facility] 04/16/2020 16:09:31 Imaging Results None recorded. Procedure Notes None recorded. Medical Equipment None Reported. Allergies Allergen ID Allergen Name Allergen Category Reaction Reaction Severity Criticality Documentation Date Start Date Code Code System Note Provider Name and Address Organization Details Recorded Time 396610 acetamino phen / hydrocodo ne medicatio n nausea Not available Not available 04/16/2020 87565 2 [facility] 0 16:07:46 Medications Name Sig Start Date Stop Date Status Note LastModified by Organization Details LastModified Time triamcinolone acetonide 0.1 % topical ointment Apply to the hands BID x2 weeks, then twice weekly. Not for face, armpits, or groin. 2024 active Not Available Not Available Not Avai lable sildenafil (pulmonary hypertension) 20 mg tablet Take 2 tablets every day by oral route as needed. 2023 active Not Available Not Available Not Avai lable lisinopril active Not Available Not Av ailable Not Available buspirone active Not Available Not Milagros ilable Not Available Zyrtec active Not Available Not Availa ble Not Available Vitals Date Recorded Body height Body mass index (BMI) Body weight Provider Name and Address Organization Details Last Updated DateTime 03/24/2021 185.42 cm 29.4 kg/m2 501656.1 g Deseriee Redmond [facility] 03/24/2021 16:52:16 Date Recorded Body height Body mass index (BMI) Body weight Provider Name and Address Organization Details Last Updated DateTime 04/11/2024 182.88 cm 28.5 kg/m2 35145.4 g Dalila Rubin [facility] 04/11/2024 16:17:12 Date Recorded Body height Body mass index (BMI) Body weight Provider Name and Address Organization Details Last Updated DateTime 04/16/2020 185.42 cm 29.4 kg/m2 042040.1 g Mari Crum [facility] 04/16/2020 16:07:33 Social History Question Answer Notes LastModified by Organizat ion Details LastModified Time Tobacco Smoking Status Never Smoker Mari Crum [facility] 04/16/2020 16:08:41 How Much Tobacco Do You Chew? 1/day Information not available 04/16/2020 Marital Status Single Informatio n not available 04/16/2020 What Was The Date Of Your Most Recent Tobacco Screening? 09/17/2024 [email or web address] Information not available 09/17/2024 Sex: Male Functional Status Question Answer Note LastModified by Organizat ion Details LastModified Time What is your level of alcohol consumption? 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 Family History Relationship Description Onset Age of this Age Resolved Age Notes LastModified by Organization Details LastModified Time Mother Malignant neoplasm of breast Not available 2019 16:08:28 Medical History Condition Response Hypertension Y Past Encounters Encounter ID Performer Location Encounter Start Date Encounter Closed Date Diagnosis/Indication Diagnosis SNOMED-CT Code Diagnosis ICD10 Code Diagnosis IMO Codes Diagnosis Note [id number] MD KIRK [facility] [address] [place] [address] 04/16/2020 15:37:06 04/16/2020 16:35:01 Male hypogonadism 07377658 E29.1 plan as above Primary er ectile dysfunction 244146780 N52.9 plan as above Male infertility 3284510 N46.9 we discussed frequency of intercours e with regards to optimizati on of . [id number] MD KIRK [facility] [address] [place] [address] 03/24/2021 16:11:32 03/25/2021 08:29:51 Male hypogonadism 77556423 E29.1 plan as above Primary er ectile dysfunction 837665538 N52.9 plan as above [id number] JOSE JEAN-BAPTISTE MD [facility] [address] [address] 10/03/2023 10:03:59 10/03/2023 10:58:46 Multiple benign melanocytic nevi 953982449 D22.5 - Benign moles seen on exam today - SPF 30 or higher broad-spec trum sunscreen recommende d with re-applica tion every 2 hours - Discussed sun protection measures, including wide-brimm ed hat, sun-protec tive clothing, and avoidance of sun during peak hours of 10am-4pm - Avoid tanning beds as these can increase the chances of all 3 types of skin cancer - Instructed to monitor for changes and to call us for appointmen t with any changing or worrisome lesions Seborrheic keratosis 394 928246 L82.1 - Benign overgrowth s of skin - Hereditary Senile angioma 6964612 I 78.1 - Benign blood vessel growths - Hereditary Solar lentigo 57551136 L 81.4 - Benign brown spots - Sun-induce d 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 Can become inflamed if they rupture. Risks, benefits, side effects, alternativ es and options of excision were discussed with patient and the patient voiced understand ing. Rec no treatment if not bothersome . If it starts to change or become painful let us know. [id number] MD KIRK CANNON [facility] [address] [place] [address] 04/11/2024 15:58:51 04/11/2024 16:55:34 Primary erectile dysfunction 917666610 N52.9 plan as above [id number] EVELYN DORAN PA-C [address]AK [address] [place] [address] 09/17/2024 10:08:08 09/19/2024 12:26:55 Multiple benign melanocytic nevi 931811561 D22.5 L81.4 D18.01 L82.1 Reassuranc e given about benign appearing skin lesion(s). Zinc and Titanium SPF 30+ sunscreens recommende d. Inflamed s eborrheic keratosis 736088645 L82.0 R20.8 Counseled on benign nature. Pt elected to treat with liquid nitrogen due to painful irritation . May recur or persist after treatment. Discolorat ion or scarring is possible. Notalgia paresthetica 27 2413663 G54.8 Discussed nature of diagnoses. Rec OTC Sarna anti itch cream Irritant c ontact dermatitis 200205232 L24.89 Favor ICD vs. Hand eczemaPt notes frequent hand washingRec Neutragena Finnish hand creamWill send TAC 0.1% ointmentRe c cotton gloves Health Concerns Section Related Observation LastModified by Organization Detai ls LastModified Time None Recorded Concern Status LastModified by Organization Details LastModified Time None Recorded Advance Directives Directive None Recorded Payers Insurance Date Sequence Insurance Name Policy Number Policy Moran Covered Member ID Moran Member ID Guarantor Name 05/21/2025 1 [place] [id number] Edson Cyr [id number] Edson Cyr Notes Date Note Type Note Provider Name and Address Organization Details Recorded Time 04/16/2020 text/html patient is here for initial visit regarding hypogonadism as well as infertility. He had his have 1 child 4 years of age. several years ago he was on minimal testosterone for hypogonadism. He actually has received no therapy in about 5 years. Years ago he had a normal semen analysis. he had recent testosterone of total 209 and free 5.8 both significantly low. He has had no additional hormonal studies. He states that he had his have tried to conceive for several months without success. We discussed obtaining additional hormonal studies to further evaluate his pituitary testicular axis.. At this point I would not suggest testosterone supplement. He occasionally has issues with maintaining an erection and we discussed the use of low-dose sildenafil. He was given a written prescription. We will obtain a total and free testosterone level with the addition of FSH LH and prolactin. He will contact me for results. Discussion time 30 minutes EDWARDO YOUSSEF [facility], [address], [facility] 04/16/2020 16:52:06 03/24/2021 text/html Patient is here in follow-up of hypogonadism. I last saw him in March he was seen at that time for both hypogonadism as well as infertility. He states that he needs since that time and undergone 3 rounds of assistive reproductive without a . He is sperm count has been acceptable by his report. He has had 2 testosterone level since the first of the year. We have one in August With a total of 262 and free testosterone of 5.1 both of which are below normal ranges. He had a repeat level last week. We do not have those levels but he states that they were low. He was to have blood drawn on Tuesday and I suggest we repeat his levels and to ensure that this is drawn before noon. He would like to proceed with replacement therapy. We discussed options including Depo testosterone and xyosted weekly injections. We briefly discussed topical agents. He has a young 5-year-old daughter and we discussed the possibility of transfer. We have a long discussion. We will await his next levels before proceeding with supplementation. He also uses sildenafil. Typically he does not need it every time but does have difficulty maintaining an erection on a regular basis. We have sent a refill of his sildenafil. EDWARDO YOUSSEF MD [facility] [place], [address], [facility] 03/24/2021 21:49:22 10/03/2023 text/html ROS as noted in the HPI Here for a full body skin examination - last skin check was in 2020 - no history of skin cancer - spots of concern today: Back. JOSE JEAN-BAPTISTE MD [address] [place] [address], [address], [facility] 10/03/2023 12:07:14 04/11/2024 text/html Patient is here last seen 3 years ago for erectile dysfunction. He continues to use sildenafil. He typically uses 20 or 40 mg. He has no other complaints. He request refill. EDWARDO YOUSSEF MD [address] [place], [address], [facility] 04/12/2024 22:43:55 09/17/2024 text/html ROS as noted in the HPI Here for a full body skin examination. - last skin check was in 09/2023- no history of skin cancer- spots of concern today: mid back EVELYN FADUMO DORAN PA-C [address] [place], [address], [facility] 09/17/2024 14:31:03
[2025-06-11 08:16] LABS: Hepatitis B Surface Antigen Negative (Negative)
== END 2025-06-07 23:59 | disposition home or self-care (01) ==
LOC: LAB.DROPOF 06-10 09:48
PROVIDERS: PCP Family Medicine; Visit Provider Family Medicine
DX: Z11.4 Encounter for screening for human immunodeficiency virus [HIV] (principal); Z11.59 Encounter for screening for other viral diseases; I10 Essential (primary) hypertension; E29.1 Testicular hypofunction
CPT/HCPCS: 80053; 80061; 84402; 84403; 85025; 86803; 87389